=== PATIENT | female | born 2000 | race African-American/Black ===

== ENCOUNTER 2021-02-10 11:46 | Emergency (ER) | payer OTHER ==
[~2021-02-10] VITALS: Ht 165.1 cm; Wt 101.2 kg
[2021-02-10] MEDS ORDERED: ERYTHROMYCIN E3.5 G2 OPHTHALMIC (13:57)
[2021-02-10] MEDS ORDERED: NORCO7.5 PO (14:00)
[2021-02-10 14:28] VITALS: BP 106/72
== END 2021-02-10 14:31 | disposition home or self-care (01) ==
LOC: ER 11:46
DX: S05.02XA Injury of conjunctiva and corneal abrasion without foreign body, left eye, initial encounter (principal); H10.213 Acute toxic conjunctivitis, bilateral; X58.XXXA Exposure to other specified factors, initial encounter; Y93.89 Activity, other specified; Y92.89 Other specified places as the place of occurrence of the external cause; Y99.9 Unspecified external cause status